=== PATIENT | male | born 1965 | race Caucasian/White ===

== ENCOUNTER 2018-07-17 11:23 | Emergency (ER) | payer OTHER ==
[~2018-07-17] VITALS: Ht 182.9 cm; Wt 112.9 kg
[~2018-07-17 11:23] MED LIST: BLOOD PRESSURE MED; METFORMIN; OMEPRAZOLE
--- NOTE | 2018-07-17 11:43 | NUR ---
Dr Natarajan at the bedside for MSE.
[2018-07-17] MEDS: IV NORMAL SALINE 1000 ML BAG IV ONE (11:55)
[2018-07-17 11:56] LABS: *BILIRUBIN,URIN NEGATIVE (NEGATIVE); *BLOOD, URINE 3+ (NEGATIVE); *CLARITY,URINE CLEAR (CLEAR); *COLOR,URINE YELLOW (YELLOW); *KETONES,URINE NEGATIVE (NEGATIVE); LEUKOCYTE ESTERASE ,URINE NEGATIVE (NEGATIVE); NITRITE, URINE NEGATIVE (NEGATIVE); PH,URINE 6.5 (5.0-8.0); UGLUCOSE NEGATIVE (NEGATIVE)
[2018-07-17 11:59] LABS: BASOPHILS # (AUTO) 0.1 K/uL (0.0-8.0); BASOPHILS % (AUTO) 0.6 % (0.0-2.0); EOSINOPHILS # (AUTO) 0.4 K/uL (0.0-0.7); EOSINOPHILS % (AUTO) 3.6 % (0.0-7.0); HEMATOCRIT 38.5 % (36.7-47.1); HEMOGLOBIN 13.6 g/dL (12.5-16.3); LYMPHOCYTES # (AUTO) 2.7 K/uL (20.0-40.0); LYMPHOCYTES % (AUTO) 25.1 % (20.5-51.5); MEAN CORPUSCULAR HEMOGLOBIN 31.4 uug (23.8-33.4); MEAN CORPUSCULAR HGB CONC 35 g/dL (32.5-36.3); MEAN CORPUSCULAR VOLUME 88.7 fL (73.0-96.2); MONOCYTES % (AUTO) 9.3 % (0.0-11.0); NEUTROPHILS # (AUTO) 6.7 K/uL (1.8-8.9); NEUTROPHILS % (AUTO) 61.4 % (38.5-71.5); PLATELET COUNT (AUTO) 222 K/uL (152-348); RED BLOOD CELL COUNT(AUTO) 4.33 MIL/uL (4.06-5.63); WHITE BLOOD COUNT (AUTO) 10.9 K/uL (3.6-10.2)
[2018-07-17 12:05] LABS: RBC,URINE 20-50 /HPF (0-3)
[2018-07-17 12:06] LABS: BACTERIA,URINE NONE SEEN /HPF (NONE SEEN); MUCUS,URINE FEW /LPF (0-FEW); SQUAMOUS EPITHELIAL CELL,UR FEW /HPF (NONE SEEN)
[2018-07-17 12:07] LABS: POTASSIUM 3.4 mmol/L (3.5-5.1)
--- NOTE | 2018-07-17 12:17 | NUR ---
Pt refused the rest of IVF and wanted HL removed. aware.
--- NOTE | 2018-07-17 12:51 | NUR ---
Dr Natarajan spoke to Dr Christy(Urologist).
[2018-07-17 13:11] VITALS: BP 133/89
--- NOTE | 2018-07-17 13:11 | NUR ---
Patient discharged to home in stable conditon. Written and verbal after care instructions given. Patient verbalizes understanding of instructions.
== END 2018-07-17 13:12 | disposition home or self-care (01) ==
LOC: ER 11:25
DX: N20.1 Calculus of ureter (principal); E86.0 Dehydration; I10 Essential (primary) hypertension; E78.5 Hyperlipidemia, unspecified; K21.9 Gastro-esophageal reflux disease without esophagitis; E11.9 Type 2 diabetes mellitus without complications; Z79.899 Other long term (current) drug therapy
CPT/HCPCS: 36415; 85025; 87077; 87086; A4663; J7030

== ENCOUNTER 2021-04-09 09:08 | Emergency (ER) | payer OTHER ==
[~2021-04-09] VITALS: Ht 182.9 cm; Wt 104.3 kg
[2021-04-09] MEDS ORDERED: KETOROLAC TROMETHAMINE 15 MG INJ IM ONE (09:30)
[2021-04-09] MEDS ORDERED: KETOROLAC TROMETHAMINE 15 MG INJ ONE (09:38)
--- NOTE | 2021-04-09 09:49 | NUR ---
U/S tech in room to do ultrasound of patient.
--- NOTE | 2021-04-09 09:57 | NUR ---
public health technologist at bedside with patient.
[2021-04-09 10:43] VITALS: BP 142/72
--- NOTE | 2021-04-09 10:43 | NUR ---
Patient discharged to home in stable condition. Written and verbal after care instructions given. Patient verbalizes understanding of instructions. Stressed follow up or return to ER for worsening s/s. Patient ambulates with steady gait, V/S stable, left with all personal belongings.
== END 2021-04-09 10:43 | disposition home or self-care (01) ==
LOC: ER 09:08
DX: M79.605 Pain in left leg (principal); I10 Essential (primary) hypertension; E11.9 Type 2 diabetes mellitus without complications; E78.5 Hyperlipidemia, unspecified; Z79.84 Long term (current) use of oral hypoglycemic drugs; K21.9 Gastro-esophageal reflux disease without esophagitis
CPT/HCPCS: 73590; 93970; 96372; 99284; J1885; A4663

== ENCOUNTER 2021-04-10 09:43 | Emergency (ER) | payer OTHER ==
[~2021-04-10] VITALS: Ht 182.9 cm; Wt 104.3 kg
[2021-04-10] MEDS ORDERED: ACETAMINOPHEN ES 500 MG TABLET PO ONE (10:30)
[2021-04-10] MEDS ORDERED: IV NORMAL SALINE 1000 ML BAG IV ONE (10:30)
--- NOTE | 2021-04-10 10:40 | NUR ---
PT TO CT, NAD NOTED.
[2021-04-10 10:42] LABS: *BILIRUBIN,URIN NEGATIVE (NEGATIVE); *BLOOD, URINE NEGATIVE (NEGATIVE); *CLARITY,URINE CLEAR (CLEAR); *COLOR,URINE YELLOW (YELLOW); *KETONES,URINE NEGATIVE (NEGATIVE); *UROBILINOGEN,URINE 0.2 E.U./dl (NORMAL); LEUKOCYTE ESTERASE ,URINE NEGATIVE (NEGATIVE); NITRITE, URINE NEGATIVE (NEGATIVE); PH,URINE 5.5 (5.0-8.0); UGLUCOSE 2+ (NEGATIVE)
[2021-04-10] MEDS ORDERED: ACETAMINOPHEN ES 500 MG TABLET ONE (10:47)
[2021-04-10 10:52] LABS: *AMPHETAMINE, URINE NEGATIVE (NEGATIVE); *CANNABINOID, URINE NEGATIVE (NEGATIVE); *COCCAINE, URINE NEGATIVE (NEGATIVE); *OPIATE, URINE NEGATIVE (NEGATIVE); *PHENCYCLIDINE SCREEN,URINE NEGATIVE (NEGATIVE)
[2021-04-10 11:42] LABS: HEMATOCRIT 41.8 % (36.7-47.1); MEAN CORPUSCULAR HEMOGLOBIN 31.6 uug (23.8-33.4); MEAN CORPUSCULAR VOLUME 92.8 fL (73.0-96.2); PLATELET COUNT (AUTO) 151 K/uL (152-348)
[2021-04-10 11:56] LABS: ETHANOL < 3 MG/DL (0-0)
[2021-04-10 12:01] LABS: MAGNESIUM 1.8 mg/dL (1.8-2.4)
[2021-04-10 12:04] LABS: THYROID STIMULATING HORMONE 0.771 mIU/mL (0.358-3.740)
[2021-04-10 12:26] LABS: CARBON DIOXIDE 22 mmol/L (21-32); CHLORIDE 110 mmol/L (98-107); CREATININE 0.6 mg/dL (0.6-1.3); GLUCOSE 100 mg/dL (74-106); POTASSIUM 3.5 mmol/L (3.5-5.1); UREA NITROGEN, BLOOD 12 mg/dL (7-18)
[2021-04-10 12:31] LABS: ALANINE AMINOTRANSFERASE 35 U/L (16-63); ALKALINE PHOSPHATASE 126 U/L (50-136); ASPARTATE AMINOTRANSFERASE 38 U/L (15-37); BILIRUBIN,TOTAL 0.7 mg/dL (0.2-1.0); TOTAL PROTEIN, SERUM 6.5 g/dL (6.4-8.2)
[2021-04-10] MEDS ORDERED: ASPIRIN 325 MG TABLET PO ONE (12:45)
[2021-04-10 12:54] LABS: BILIRUBIN,DIRECT 0.1 mg/dL (0.0-0.2)
--- NOTE | 2021-04-10 13:07 | NUR ---
IV removed. Catheter intact and site benign. Pressure and 4x4 gauze applied to site. No bleeding noted.
--- NOTE | 2021-04-10 13:07 | NUR ---
Patient does not wish to proceed with medical care recommended by . Patient given information related to possible complications, up to and including , which could occur as a result of leaving the hospital at this time. Patient verbalizes understanding of risks involved due to leaving against medical advice. Patient has signed AMA form.
--- NOTE | 2021-04-10 13:07 | NUR ---
Patient discharged to home in stable condition. Written and verbal after care instructions given. Patient verbalizes understanding of instructions. Stressed follow up or return to ER for worsening s/s.
[2021-04-10 13:08] VITALS: BP 126/77
[2021-04-10 15:32] LABS: BACTERIA,URINE NONE SEEN /HPF (NONE SEEN); RBC,URINE 0-3 /HPF (0-3); WBC,URINE 0-3 /HPF (0-3)
[2021-04-10 15:33] LABS: SQUAMOUS EPITHELIAL CELL,UR FEW /HPF (NONE SEEN); URINE AMORPHOUS URATE FEW /HPF
== END 2021-04-10 13:08 | disposition left against medical advice (07) ==
LOC: ER 09:43
DX: I63.9 Cerebral infarction, unspecified (principal); R47.01 Aphasia; I10 Essential (primary) hypertension; R29.700 NIHSS score 0; E78.5 Hyperlipidemia, unspecified; K21.9 Gastro-esophageal reflux disease without esophagitis; E11.9 Type 2 diabetes mellitus without complications; M79.662 Pain in left lower leg; Z79.84 Long term (current) use of oral hypoglycemic drugs; Z79.899 Other long term (current) drug therapy; E66.01 Morbid (severe) obesity due to excess calories; Z68.31 Body mass index [BMI] 31.0-31.9, adult; I16.1 Hypertensive emergency; Z20.822 Contact with and (suspected) exposure to COVID-19; Z53.29 Procedure and treatment not carried out because of patient's decision for other reasons
CPT/HCPCS: 36415; 70030-TC; 70450; 71045; 72125; 83735; 84100; 84443; 85025; 85730; 93005; A4663; A9150; G0480; J7030

== ENCOUNTER 2021-09-26 08:17 | Emergency (ER) | payer OTHER ==
[~2021-09-26] VITALS: Ht 182.9 cm; Wt 104.3 kg
[2021-09-26] MEDS ORDERED: IV NORMAL SALINE 1000 ML BAG IV ONE (09:30)
--- NOTE | 2021-09-26 09:30 | NUR ---
recieved pt in bed on a semi fowlers position, conscious and coherent. complained of hematochezia upon defication and mild lower abd discomfort. no SOB noted
[2021-09-26] MEDS ORDERED: ASPI81TA31 PO (09:51)
[2021-09-26 10:01] LABS: CARBON DIOXIDE 24 mmol/L (21-32); CHLORIDE 108 mmol/L (98-107); CREATININE 0.7 mg/dL (0.6-1.3); GLUCOSE 183 mg/dL (74-106); POTASSIUM 3.8 mmol/L (3.5-5.1); UREA NITROGEN, BLOOD 20 mg/dL (7-18)
[2021-09-26 10:04] LABS: HEMATOCRIT 43.6 % (36.7-47.1); MEAN CORPUSCULAR HEMOGLOBIN 31.6 uug (23.8-33.4); MEAN CORPUSCULAR VOLUME 93.5 fL (73.0-96.2); PLATELET COUNT (AUTO) 194 K/uL (152-348)
[2021-09-26 10:09] LABS: ALANINE AMINOTRANSFERASE 43 U/L (16-63); ALKALINE PHOSPHATASE 129 U/L (50-136); ASPARTATE AMINOTRANSFERASE 23 U/L (15-37); BILIRUBIN,DIRECT 0.2 mg/dL (0.0-0.2); BILIRUBIN,TOTAL 0.9 mg/dL (0.2-1.0); LIPASE 133 U/L (73-393); TOTAL PROTEIN, SERUM 7.1 g/dL (6.4-8.2)
[2021-09-26] MEDS ORDERED: IV NORMAL SALINE 250 ML IV ONE (11:10)
[2021-09-26] MEDS ORDERED: IOHEXOL 300MG/ML 100 ML INFUS..BTL ONE (11:10)
[2021-09-26] MEDS ORDERED: SWABABLE VALVE TRANSFER SET EA MC ONE (11:10)
--- NOTE | 2021-09-26 11:30 | NUR ---
pt came back from CT, no EDUIN, VS are stable
[2021-09-26 11:45] LABS: *OCCULT BLOOD STOOL POSITIVE (NEGATIVE)
--- NOTE | 2021-09-26 13:40 | NUR ---
Patient does not wish to proceed with medical care recommended by Dr. Grayson. Patient given information related to possible complications, up to and including , which could occur as a result of leaving the hospital at this time. Patient verbalizes understanding of risks involved due to leaving against medical advice. Patient has signed AMA form.
--- NOTE | 2021-09-26 14:00 | NUR ---
removed IV intact, site okay, bandaged
[2021-09-26 14:30] VITALS: BP 142/80
== END 2021-09-26 14:00 | disposition left against medical advice (07) ==
LOC: ER 08:24
DX: K92.2 Gastrointestinal hemorrhage, unspecified (principal); K74.60 Unspecified cirrhosis of liver; I11.9 Hypertensive heart disease without heart failure; E11.9 Type 2 diabetes mellitus without complications; Z79.84 Long term (current) use of oral hypoglycemic drugs; Z79.82 Long term (current) use of aspirin; K21.9 Gastro-esophageal reflux disease without esophagitis; E78.5 Hyperlipidemia, unspecified; E66.9 Obesity, unspecified; Z68.31 Body mass index [BMI] 31.0-31.9, adult; Z20.822 Contact with and (suspected) exposure to COVID-19
CPT/HCPCS: 36415; 71045; 74177; 80048; 80076; 82270; 83690; 84484 ×2; 85025; 85730; 86850; 86900; 86901; 87426; 93005; 96360; 96361; 99291; Q9967; A4663; J7030; J7050

== ENCOUNTER 2021-12-30 13:59 | Emergency (ER) | payer OTHER ==
[~2021-12-30] VITALS: Ht 185.4 cm; Wt 106.6 kg
[~2021-12-30 13:59] MED LIST changes: +ASPI81TA31 PO
--- NOTE | 2021-12-30 14:10 | NUR ---
Dr Sanabria at the bedside for MSE.
[2021-12-30] MEDS ORDERED: TDAP DIPH,PERTUSS,TET VAC/PF 0.5 ML DISP.SYRIN IM ONE ×2 (14:15→14:16)
[2021-12-30] MEDS ORDERED: NEOMY/BACITRA/POLYMYXIN B OINT UD PACKET TP ONE ×2 (14:15→14:18)
[2021-12-30 14:53] VITALS: BP 136/65
== END 2021-12-30 14:54 | disposition home or self-care (01) ==
LOC: ER 13:59
DX: S61.412A Laceration without foreign body of left hand, initial encounter (principal); W25.XXXA Contact with sharp glass, initial encounter; Y93.89 Activity, other specified; Y92.512 Supermarket, store or market as the place of occurrence of the external cause; I10 Essential (primary) hypertension; E78.5 Hyperlipidemia, unspecified; E11.9 Type 2 diabetes mellitus without complications; Z79.82 Long term (current) use of aspirin; Z79.84 Long term (current) use of oral hypoglycemic drugs
CPT/HCPCS: 90715; A4663

== ENCOUNTER 2022-05-03 | Emergency (ER) | payer OTHER ==
[~2022-05-03] VITALS: Ht 182.9 cm; Wt 106.6 kg
--- NOTE | 2022-05-03 01:50 | NUR ---
Dr. He at bedside for medical screening exam. -
[2022-05-03] MEDS ORDERED: LIDOCAINE HCL 2% 20 ML VIAL ONE (01:59)
[2022-05-03] MEDS ORDERED: LIDOCAINE HCL 2% 20 ML VIAL IJ ONE (02:00)
--- NOTE | 2022-05-03 02:54 | NUR ---
Patient discharged to home in stable condition. Written and verbal after care instructions given. Patient verbalizes understanding of instructions. Stressed follow up or return to ER for worsening s/s. Patient was stable and showed no signs of distress and had a steady gait. Took all his belongings with him.
[2022-05-03 02:55] VITALS: BP 152/80
== END 2022-05-03 03:01 | disposition home or self-care (01) ==
LOC: ER 00:05
DX: S41.111A Laceration without foreign body of right upper arm, initial encounter (principal); W26.0XXA Contact with knife, initial encounter; Y92.89 Other specified places as the place of occurrence of the external cause; I10 Essential (primary) hypertension; E11.9 Type 2 diabetes mellitus without complications; Z79.84 Long term (current) use of oral hypoglycemic drugs; Z79.82 Long term (current) use of aspirin
CPT/HCPCS: 99282; 12004; J3490; A4663

== ENCOUNTER 2022-05-14 09:20 | Emergency (ER) | payer OTHER ==
[~2022-05-14] VITALS: Ht 182.9 cm; Wt 106.6 kg
--- NOTE | 2022-05-14 09:37 | NUR ---
AT BEDSIDE FOR EVALUATION.
--- NOTE | 2022-05-14 09:42 | NUR ---
Patient discharged to home in stable condition with brisk steady gait. Written and verbal after care instructions given. Patient verbalized understanding and cunderstanding of instructions. Stressed follow up or return to ER for worsening s/s.
== END 2022-05-14 09:44 | disposition home or self-care (01) ==
LOC: ER 09:20
DX: S51.811D Laceration without foreign body of right forearm, subsequent encounter (principal); W26.0XXD Contact with knife, subsequent encounter; E11.9 Type 2 diabetes mellitus without complications; Z79.4 Long term (current) use of insulin; E78.5 Hyperlipidemia, unspecified; I10 Essential (primary) hypertension; Z79.82 Long term (current) use of aspirin; Z79.84 Long term (current) use of oral hypoglycemic drugs
CPT/HCPCS: A4663